=== PATIENT | female | born 1990 | race Caucasian/White ===

== ENCOUNTER 2025-03-27 13:22 | Outpatient (REF) | payer MEDICAID, SELFPAY ==
[2025-03-27 15:57] LABS: Cannabinoids THC Negative (Negative)
== END 2025-03-27 13:23 | disposition home or self-care (01) ==
LOC: LBN 13:22
PROVIDERS: PCP Nurse Practitioner Family; Visit Provider Registered Nurse
DX: F19.10 Other psychoactive substance abuse, uncomplicated (principal); F11.21 Opioid dependence, in remission; Z51.81 Encounter for therapeutic drug level monitoring
CPT/HCPCS: 80307; 80360